=== PATIENT | male | born 1975 | race African-American/Black ===

== ENCOUNTER 2022-12-07 02:35 | Emergency (ER) | payer OTHER ==
[~2022-12-07] VITALS: Ht 177.8 cm; Wt 104.3 kg
[2022-12-07 03:13] LABS: INR 0.92 (0.80-1.30)
[2022-12-07 03:14] LABS: HEMOGLOBIN 15.2 g/dL (12.0-18.0)
[2022-12-07 03:52] LABS: BASOPHILS 1.3 % (0-2); HEMATOCRIT 45.8 % (35.0-50.0); LYMPHOCYTES 31.6 % (24-44); MCH 27.9 (27-36); MCHC 33.3 g/dl (30-36); MCV 83.9 fl (81-99); MONOCYTES 6.8 % (0-12); NEUTROPHILS 58.3 % (39-80); PLATELET COUNT 373 K/uL (140-440); RBC 5.46 M/ul (4.3-5.7); RDW 15.7 (10.5-15.0)
[2022-12-07 03:58] LABS: ALBUMIN 3.8 g/dL (3.4-5.0); ALBUMIN/GLOBULIN RATIO 0.9 (1.1-2.4); ANION GAP 20.7 (7-21); BILIRUBIN, TOTAL 0.5 ng/dL (0.2-1.0); MAGNESIUM 2.4 mg/dL (1.8-2.4); POTASSIUM 4.7 mmol/L (3.5-5.1)
[2022-12-07 04:14] LABS: BUN/CREATININE RATIO 16.51 (6.0-28.6); CREATININE, SERUM 1.09 mg/dL (0.70-1.30)
[2022-12-07 04:37] LABS: CALCIUM 9.2 mg/dL (8.5-10.1)
--- NOTE | 2022-12-07 05:49 | EKG ---
[facility] [address] [facility] [place] [address] Signed Normal sinus rhythm Nonspecific T wave abnormality Abnormal ECG No previous ECGs available Confirmed by JUANA CALDWELL MD ([id number]) on 12/07/2022 5:48:55 AM Electronically Signed By: JUANA CALDWELL 12/07/22 0549 PATIENT NAME: JOEL AMOR Electrocardiogram DATE OF : 73 PHYSICIAN: JUANA CALDWELL REPORT #: [id number] REPORT IS CONFIDENTIAL AND NOT TO BE RELEASED WITHOUT AUTHORIZATION
[2022-12-07 07:16] VITALS: BP 132/90
== END 2022-12-07 07:05 | disposition home or self-care (01) ==
LOC: ED 02:35
PROVIDERS: Family Medicine
DX: K21.9 Gastro-esophageal reflux disease without esophagitis (principal); I10 Essential (primary) hypertension; Z88.0 Allergy status to penicillin; Z88.5 Allergy status to narcotic agent
CPT/HCPCS: 36415; 71045; 76705; 80053; 83690; 83735; 84484; 85025; 85060; 85379; 85610; 93005; 93010; 96374; 99285-25; A9270; C9113